=== PATIENT | male | born 1985 | race Caucasian/White ===

== ENCOUNTER 2018-04-07 18:59 | Emergency (ER) | payer SELFPAY ==
[~2018-04-07] VITALS: Ht 180.3 cm; Wt 124.7 kg
--- NOTE | 2018-04-07 20:08 | ED General ---
General Chief Complaint: Cough/Cold/Flu Symptoms Stated Complaint: FLU LIKE SYMPTOMS Nursing Triage Note: PATIENT STATES THAT HE HAS HAD A FEVER AND CHILLS X2 DAYS. HE HAS BODY ACHES AND STATES "IT FEELS LIKE I GOT HIT BY A CAR." Nursing Sepsis Screen: No Definite Risk Source of Information: Patient Exam Limitations: No Limitations History of Present Illness Date Seen by Provider: Apr 07, 2018 Time Seen by Provider: 20:07 Initial Comments To ER per private vehicle with reports of a 2 day history of fever up to 102, body aches, sore throat, nausea vomiting diarrhea. He's not been able to eat all day today. Denies cough. Timing/Duration: 1-2 Days Severity: Moderate Associated Systoms: No Cough, No Diaphoresis; Fever/Chills, Malaise, Nausea/ Vomiting Allergies and Home Medications Allergies Coded Allergies: No Known Drug Allergies (Unverified , 04/07/18) Home Medications Cefuroxime Axetil 500 Mg Tablet, 500 MG PO BID Prescribed by: LOLY AMOS on 04/07/182049 Patient Home Medication List Home Medication List Reviewed: Yes Review of Systems Review of Systems Constitutional: see HPI, chills, fever, weakness EENTM: see HPI, throat pain Respiratory: no symptoms reported; No cough Cardiovascular: no symptoms reported Gastrointestinal: diarrhea, nausea, vomiting Genitourinary: no symptoms reported Musculoskeletal: no symptoms reported Skin: no symptoms reported Psychiatric/Neurological: No Symptoms Reported Hematologic/Lymphatic: No Symptoms Reported Immunological/Allergic: no symptoms reported Past [id number]-[id number] Hx Patient Social History Recent Foreign Travel: No Contact w/Someone Who Travel: No Recent Infectious Disease Expo: No Physical Exam Vital Signs Vital Signs - First Documented 04/07/18 19:36 Temp 97.0 Pulse 97 Resp 18 B/P (MAP) 140/97 (111) Pulse Ox 98 Capillary Refill : Less Than 3 Seconds Height, Weight, BMI Height: 5'11.00" Weight: 275lbs. 0oz. 124.445626wr; BMI Method:Stated General Appearance: No Apparent Distress, WD/WN Eyes: Bilateral Eye Normal Inspection, Bilateral Eye PERRL, Bilateral Eye EOMI HEENT: PERRL/EOMI, TMs Normal Neck: Full Range of Motion, Normal Inspection Respiratory: Normal Breath Sounds, No Accessory Muscle Use, No Respiratory Distress Cardiovascular: Normal Peripheral Pulses, Tachycardia Gastrointestinal: Normal Bowel Sounds, Non Tender, Soft Extremity: Normal Capillary Refill, Normal Inspection Neurologic/Psychiatric: Alert, Oriented x3 Skin: Normal Color, Warm/Dry Progress/Results/Core Measures Suspected Sepsis Recent Fever Within 48 Hours: No Infection Criteria Present: Suspected New Infection New/Unexplained Altered Menta: No Sepsis Screen: No Definite Risk SIRS Temperature:97.0 Pulse: 97 Respiratory Rate: 18 Laboratory Tests 04/07/18 20:15: White Blood Count 14.3H Blood Pressure 140 /97 Mean: 111 Laboratory Tests 04/07/18 20:15: Creatinine 1.25, Platelet Count 238, Total Bilirubin 0.4 Results/Orders Lab Results Laboratory Tests Test 04/07/18 20:15 Range/Units White Blood Count 14.3 H 4.3-11.0 10^3/uL Red Blood Count 5.44 4.35-5.85 10^6/uL Hemoglobin 16.4 13.3-17.7 G/DL Hematocrit 47 40-54 % Mean Corpuscular Volume 87 80-99 FL Mean Corpuscular Hemoglobin 30 25-34 PG Mean Corpuscular Hemoglobin Concent 35 32-36 G/DL Red Cell Distribution Width 12.7 10.0-14.5 % Platelet Count 238 130-400 10^3/uL Mean Platelet Volume 10.0 7.4-10.4 FL Neutrophils (%) (Auto) 76 H 42-75 % Lymphocytes (%) (Auto) 15 12-44 % Monocytes (%) (Auto) 9 0-12 % Eosinophils (%) (Auto) 0 0-10 % Basophils (%) (Auto) 0 0-10 % Neutrophils # (Auto) 10.9 H 1.8-7.8 X 10^3 Lymphocytes # (Auto) 2.1 1.0-4.0 X 10^3 Monocytes # (Auto) 1.2 H 0.0-1.0 X 10^3 Eosinophils # (Auto) 0.0 0.0-0.3 10^3/uL Basophils # (Auto) 0.0 0.0-0.1 10^3/uL Neutrophils % (Manual) 72 % Lymphocytes % (Manual) 20 % Monocytes % (Manual) 4 % Eosinophils % (Manual) 0 % Basophils % (Manual) 0 % Band Neutrophils 4 % Blood Morphology Comment NORMAL Sodium Level 136 135-145 MMOL/L Potassium Level 3.8 3.6-5.0 MMOL/L Chloride Level 102 98-107 MMOL/L Carbon Dioxide Level 22 21-32 MMOL/L Anion Gap 12 5-14 MMOL/L Blood Urea Nitrogen 12 7-18 MG/DL Creatinine 1.25 0.60-1.30 MG/DL Estimat Glomerular Filtration Rate > 60 BUN/Creatinine Ratio 10 Glucose Level 96 70-105 MG/DL Calcium Level 10.2 H 8.5-10.1 MG/DL Corrected Calcium 8.5-10.1 MG/DL Total Bilirubin 0.4 0.1-1.0 MG/DL Aspartate Amino Transf (AST/SGOT) 22 5-34 U/L Alanine Aminotransferase (ALT/SGPT) 35 0-55 U/L Alkaline Phosphatase 58 40-136 U/L Total Protein 8.0 6.4-8.2 GM/DL Albumin 4.6 H 3.2-4.5 GM/DL Group A Streptococcus Screen POSITIVE H NEGATIVE Micro Results Microbiology 04/07/18 Influenza Types A,B Antigen (AYLA) - Final, Complete My Orders Orders - LOLY AMOS APRN Influenza A And B Antigens (04/07/18 19:28) Cbc With Automated Diff (04/07/18 20:06) Comprehensive Metabolic Panel (04/07/18 20:06) Iv Heplock-Insert (Order) (04/07/18 20:06) Rapamune (04/07/18 20:06) Lactated Ringers (Lr 1000 Ml Iv Solution (04/07/18 20:15) Hyoscyamine Sl Tablet (Levsin Sl Tablet) (04/07/18 20:15) Rapid Strep A Screen (04/07/18 20:26) Manual Differential (04/07/18 20:15) Ceftriaxone For Iv Use (Rocephin For I (04/07/18 21:00) Prednisone Tablet (Deltasone Tablet) (04/07/18 21:00) Medications Given in ED Current Medications Medications Dose Ordered Sig/John Route Start Time Stop Time Status Last Admin Dose Admin Ceftriaxone Sodium 1000 mg/ Sterile Water 10 ml @ 200 mls/hr ONCE ONCE IV 04/07/18 21:00 04/07/18 21:02 DC 04/07/18 21:07 200 MLS/HR Hyoscyamine Sulfate 0.25 mg ONCE ONCE PO 04/07/18 20:15 04/07/18 20:16 DC 04/07/18 20:20 0.25 MG Prednisone 40 mg ONCE ONCE PO 04/07/18 21:00 04/07/18 21:01 DC 04/07/18 21:07 40 MG Vital Signs/I&O 04/07/18 19:36 Temp 97.0 Pulse 97 Resp 18 B/P (MAP) 140/97 (111) Pulse Ox 98 Capillary Refill : Less Than 3 Seconds Blood Pressure Mean: 111 Departure Impression Primary Impression: Strep throat Disposition: HOME, SELF-CARE Condition: Stable Departure-Patient Inst. Decision time for Depature: 20:49 Referrals: NO,LOCAL PHYSICIAN (PCP/Family) Primary Care Physician Patient Instructions: Strep Throat (DC) Add. Discharge Instructions: 1. Return to ER for any concerns 2. Antibiotic as directed 3. All discharge instructions reviewed with patient and/or family. Voiced understanding. Scripts Cefuroxime Axetil (Cefuroxime) 500 Mg Tablet 500 MG PO BID, #10 TAB Prov: LOLY AMOS APRN 04/07/18 Work/School Note: Work Release Form Date Seen in the Emergency Department: Apr 07, 2018 Return to Work: Apr 10, 2018 LOLY AMOS APRN Apr 07, 2018 20:08
[2018-04-07] MEDS ORDERED: HYOSCYAMINE 0.125 MG (LEVSIN) TAB PO ONE (20:15)
[2018-04-07] MEDS ORDERED: LACTATED RINGERS 1,000 ML IV SCH (20:15)
[2018-04-07 20:26] LABS: BASOPHILS % (AUTO) 0 % (0-10); EOSINOPHILS % (AUTO) 0 % (0-10); HEMATOCRIT 47 % (40-54); HEMOGLOBIN 16.4 G/DL (13.3-17.7); LYMPHOCYTES # (AUTO) 2.1 X 10^3 (1.0-4.0); LYMPHOCYTES % (AUTO) 15 % (12-44); MEAN CORPUSCULAR HEMOGLOBIN 30 PG (25-34); MEAN CORPUSCULAR HGB CONC 35 G/DL (32-36); MEAN CORPUSCULAR VOLUME 87 FL (80-99); MONOCYTES # (AUTO) 1.2 X 10^3 (0.0-1.0); MONOCYTES % (AUTO) 9 % (0-12); NEUTROPHILS # (AUTO) 10.9 X 10^3 (1.8-7.8); NEUTROPHILS % (AUTO) 76 % (42-75); PLATELET COUNT 238 10^3/uL (130-400); RED CELL DISTRIBUTION WIDTH 12.7 % (10.0-14.5); WHITE BLOOD COUNT 14.3 10^3/uL (4.3-11.0)
[2018-04-07 20:46] LABS: ALANINE AMINOTRANSFERASE 35 U/L (0-55); ALBUMIN 4.6 GM/DL (3.2-4.5); ALKALINE PHOSPHATASE 58 U/L (40-136); BILIRUBIN,TOTAL 0.4 MG/DL (0.1-1.0); BUN/CREATININE RATIO 10; CALCIUM 10.2 MG/DL (8.5-10.1); CARBON DIOXIDE 22 MMOL/L (21-32); CREATININE SERUM 1.25 MG/DL (0.60-1.30); GFR ESTIMATED > 60; GLUCOSE 96 MG/DL (70-105)
[2018-04-07] MEDS ORDERED: CEFU500T63 PO (20:50)
[2018-04-07 20:58] LABS: BAND NEUTROPHILS 4 %; BASOPHILS % (MANUAL) 0 %; EOSINOPHILS % (MANUAL) 0 %; LYMPHOCYTES % (MANUAL) 20 %; MONOCYTES % (MANUAL) 4 %; NEUTROPHILS % (MANUAL) 72 %; RBC MORPH NORMAL
[2018-04-07] MEDS ORDERED: predniSONE 20 MG TAB PO ONE (21:00)
[2018-04-07] MEDS ORDERED: cefTRIAXone FOR IV USE 1,000 MG in WATER (STERILE) FOR INJECTION 10 ML IV ONE (21:00)
[2018-04-07 21:07] LABS: CHLORIDE 102 MMOL/L (98-107); POTASSIUM 3.8 MMOL/L (3.6-5.0); SODIUM 136 MMOL/L (135-145)
[2018-04-07 21:16] VITALS: BP 140/97
--- OUTSIDE RECORDS SUMMARY | 2018-04-10 03:47 | XMS REPORT | Continuity of Care Document ---
Author Author [facility] Address Unknown Phone Unavailable Allergies Active Description Code Type Severity Reaction Onset Reported/Identified Relationship to Patient Clinical Status Yes No Known Drug Allergies [id number] Drug Allergy Unknown N/A 04/07/2018 Medications There is no data. Problems Date Dx Coded Attending Type Code Diagnosis Diagnosed By 10/14/2010 JOSEPH JOHNSTON MD V70.4 EXAM-MEDICOLEGAL REASONS 04/13/2012 ONEAL CLAYTON MD V70.5 HEALTH EXAM-GROUP SURVEY 12/12/2012 ONEAL CLAYTON MD V70.5 HEALTH EXAM-GROUP SURVEY 03/31/2018 JOSEPH JOHNSTON MD Z02.1 Encounter for pre-employment examination Procedures Code Description Performed By Performed On G0431 DRUG SCREEN SINGLE CLASS JOSEPH JOHNSTON MD 10/14/2010 30053 DRUG SCREEN, ONEAL BLOUNT MD 04/13/2012 17631 DRUG SCREEN, ONEAL BLOUNT MD 12/12/2012 96310 DRUG TEST PRSMV DIR OPT OBS JOSEPH JOHNSTON MD 03/31/2018 Results Test Result Range Influenza virus A and B antigen detection - 04/07/18 19:39 FLU RESULT NEGATIVE FOR INFLUENZA A AND B ANTIGENS BY IA NRG Complete blood count (CBC) with automated white blood cell (WBC) differential - 04/07/18 20:15 Blood leukocytes automated count (number/volume) 14.3 10*3/uL 4.3-11.0 Blood erythrocytes automated count (number/volume) 5.44 10*6/uL 4.35-5.85 Venous blood hemoglobin measurement (mass/volume) 16.4 g/dL 13.3-17.7 Blood hematocrit (volume fraction) 47 % 40-54 Automated erythrocyte mean corpuscular volume 87 [foz_us] 80-99 Automated erythrocyte mean corpuscular hemoglobin (mass per erythrocyte) 30 pg 25-34 Automated erythrocyte mean corpuscular hemoglobin concentration measurement ( mass/volume) 35 g/dL 32-36 Automated erythrocyte distribution width ratio 12.7 % 10.0-14.5 Automated blood platelet count (count/volume) 238 10*3/uL 130-400 Automated blood platelet mean volume measurement 10.0 [foz_us] 7.4-10.4 Automated blood neutrophils/100 leukocytes 76 % 42-75 Automated blood lymphocytes/100 leukocytes 15 % 12-44 Blood monocytes/100 leukocytes 9 % 0-12 Automated blood eosinophils/100 leukocytes 0 % 0-10 Automated blood basophils/100 leukocytes 0 % 0-10 Blood neutrophils automated count (number/volume) 10.9 10*3 1.8-7.8 Blood lymphocytes automated count (number/volume) 2.1 10*3 1.0-4.0 Blood monocytes automated count (number/volume) 1.2 10*3 0.0-1.0 Automated eosinophil count 0.0 10*3/uL 0.0-0.3 Automated blood basophil count (count/volume) 0.0 10*3/uL 0.0-0.1 Streptococcus pyogenes antigen detection - 04/07/18 20:15 Streptococcus pyogenes antigen detection POSITIVE NEGATIVE Comprehensive metabolic panel - 04/07/18 20:15 Serum or plasma sodium measurement (moles/volume) 136 mmol/L 135-145 Serum or plasma potassium measurement (moles/volume) 3.8 mmol/L 3.6-5.0 Serum or plasma chloride measurement (moles/volume) 102 mmol/L 98-107 Carbon dioxide 22 mmol/L 21-32 Serum or plasma anion gap determination (moles/volume) 12 mmol/L 5-14 Serum or plasma urea nitrogen measurement (mass/volume) 12 mg/dL 7-18 Serum or plasma creatinine measurement (mass/volume) 1.25 mg/dL 0.60-1.30 Serum or plasma urea nitrogen/creatinine mass ratio 10 NRG Serum or plasma creatinine measurement with calculation of estimated glomerular filtration rate > NRG Serum or plasma glucose measurement (mass/volume) 96 mg/dL 70-105 Serum or plasma calcium measurement (mass/volume) 10.2 mg/dL 8.5-10.1 Serum or plasma total bilirubin measurement (mass/volume) 0.4 mg/dL 0.1-1.0 Serum or plasma alkaline phosphatase measurement (enzymatic activity/volume) 58 U/L 40-136 Serum or plasma aspartate aminotransferase measurement (enzymatic activity/ volume) 22 U/L 5-34 Serum or plasma alanine aminotransferase measurement (enzymatic activity/volume ) 35 U/L 0-55 Serum or plasma protein measurement (mass/volume) 8.0 g/dL 6.4-8.2 Serum or plasma albumin measurement (mass/volume) 4.6 g/dL 3.2-4.5 Blood manual differential performed detection - 04/07/18 20:15 Blood monocytes/100 leukocytes 4 % NRG Manual blood segmented neutrophils/100 leukocytes 72 % NRG Blood band neutrophils/100 leukocytes 4 % NRG Manual blood lymphocytes/100 leukocytes 20 % NRG Manual eosinophils/100 leukocytes in nose 0 % NRG Manual blood basophils/100 leukocytes 0 % NRG Blood erythrocyte morphology finding identification NORMAL NRG Encounters ACCT No. Visit Date/Time Discharge Status Pt. Type Provider Facility Loc./Unit Complaint [id number] 03/31/2018 11:33:00 03/31/2018 11:33:00 DIS Outpatient JOSEPH JOHNSTON MD LAB [id number] 12/12/2012 11:11:00 12/12/2012 11:11:00 DIS Outpatient FORREST KINSEY, [facility] TRNT [id number] 04/13/2012 10:47:00 04/13/2012 10:47:00 DIS Outpatient FORREST KINSEY, [facility] TRNT [id number] 10/14/2010 15:04:00 10/14/2010 23:59:59 CLS Outpatient JOSEPH JOHNSTON MD [id number] 04/07/2018 19:02:00 04/07/2018 21:16:00 DIS Emergency LOLY AMOS APRN [facility] ER FLU LIKE SYMPTOMS
== END 2018-04-07 21:16 | disposition home or self-care (01) ==
LOC: ER 19:02
DX: J02.0 Streptococcal pharyngitis (principal)
CPT/HCPCS: 36415; 80053; 80195; 85007; 85027; 87430; 87804; 96361; 96374